=== PATIENT | male | born 1970 | race Caucasian/White ===

== ENCOUNTER 2016-06-20 15:43 | Emergency (ER) | payer MEDICAID ==
[~2016-06-20] VITALS: Ht 185.4 cm; Wt 79.5 kg
[~2016-06-20 15:43] MED LIST: IBUP800T23 PO; RANI300T PO
[2016-06-20 15:45] VITALS: BP 165/91; PULSE 74; RESP 20; TEMP 98; O2SAT 98
--- NOTE | 2016-06-20 16:15 | PD ---
HPI Chief Complaint: Injury Time Seen by Provider: 16:14 Travel History International Travel<30 days: No Contact w/Intl Traveler<30days: No Traveled to known affect area: No History of Present Illness HPI 46-year-old male presents to the emergency Department with complaint of left wrist pain since Monday after falling and catching himself with his left hand. Reports paresthesias to the fifth, fourth, and third fingers that comes and goes. Reports decreased range of motion at the wrist. 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 Pain is aggravated with movement of the fifth and fourth fingers; and movement of the wrist. Has tried ice, heat, ibuprofen, and Tylenol with minimal relief of pain. Denies fever, chills, nausea, vomiting. Reports allergies to the tetanus vaccination. Denies significant past medical history. No other modifying factors or associated signs and symptoms. PFSH Past Medical History Medical History: Denies Significant Hx Past Surgical History Genitourinary Surgery: Yes (HERNIA) Social History Alcohol Use: Yes (socially) Tobacco Use: Yes (1 PPD) Substance Use: Yes (MARIJUANA) Allergies-Medications (Allergen,Severity, Reaction): Coded Allergies: Tetanus Toxoid (Verified Allergy, Severe, Hives, 06/20/16) Reported Meds & Prescriptions Reported Meds & Active Scripts Active Ibuprofen 800 Mg Tab 800 Mg PO Q6HR PRN Review of Systems Except as stated in HPI: all other systems reviewed are Neg Physical Exam Narrative GENERAL: Well-nourished, well-developed male patient, in no acute distress SKIN: Warm and dry. HEAD: Atraumatic. Normocephalic. EYES: Pupils equal and round. No scleral icterus. No injection or drainage. ENT: Mucosa pink and moist. Airway patent. NECK: Trachea midline. CARDIOVASCULAR: Regular rate. RESPIRATORY: No accessory muscle use. GASTROINTESTINAL: Flat. MUSCULOSKELETAL: Left wrist with tenderness on palpation to the dorsal aspect; no erythema ; no edema; with decreased range of motion secondary to pain; no obvious deformity. hand with full range of motion at all joints. Left upper extremity is supple and non-tense with 2+ radial pulse and sensory intact. No obvious deformities. No clubbing. No cyanosis. NEUROLOGICAL: Awake and alert. Oriented 3. No obvious cranial nerve deficits. Motor grossly within normal limits. Normal speech. PSYCHIATRIC: Appropriate mood and affect; insight and judgment normal. Data Data Last Documented VS Vital Signs Date Time Temp Pulse Resp B/P Pulse Ox O2 Delivery O2 Flow Rate FiO2 06/20/16 15:45 98.0 74 20 165/91 98 Room Air Orders Wrist, Complete ([id number]) (06/20/16 16:20) Ibuprofen (Motrin) (06/20/16 16:30) Splint Or Brace Apply/Monitor (06/20/16 17:20) MDM Medical Decision Making Medical Screen Exam Complete: Yes Emergency Medical Condition: Yes Medical Record Reviewed: Yes Differential Diagnosis Wrist fracture, wrist dislocation, wrist sprain Narrative Course 46-year-old male with left wrist injury after a fall on Monday. Left upper extort is supple and nontender. 2+ radial pulses and sensory intact without erythema or edema. Ibuprofen administered in the ER. Left wrist x-ray ordered. 1719: Left wrist x-ray with no acute findings. Velcro wrist splint applied for support. Instructed patient to follow-up outpatient if symptoms persist greater than 10 days and he verbalized understanding and agreement. Patient is medically cleared and stable for discharge. Discussed reasons to return to the emergency department. Instructed patient to follow up with primary care provider. Patient agrees with treatment plan. The patients vital signs are stable and the patient is stable for outpatient follow-up and treatment. Patient discharged home, stable and in no acute distress. Diagnosis Primary Impression: Left wrist sprain Qualified Code: S63.502A - Left wrist sprain, initial encounter Referrals: Primary Care Physician Patient Instructions: General Instructions, Wrist Sprain (ED) Additional Instructions: Tylenol or ibuprofen as directed and as needed to reduce pain Rest, ice, compress, and elevate extremity to decrease pain and inflammation Dyllan wrap for support Wrist Splint for support Avoid aggravating activity; increase activity as tolerated Follow-up with primary care provider Return to the emergency department immediately with worsening symptoms Med/Other Pt SpecificInfo: Prescription(s) given Scripts Ibuprofen 800 Mg [id number] Mg PO Q6HR PRN (PAIN) #30 TAB Ref 0 Prov:Dejah Lazaro 06/20/16 Disposition: 01 DISCHARGE HOME Condition: Stable Dejah Lazaro Jun 20, 2016 16:14
[2016-06-20] MEDS ORDERED: IBUP800T23 PO (16:25)
[2016-06-20] MEDS ORDERED: IBUPROFEN 800 MG TAB PO ONE (16:30)
--- NOTE | 2016-06-20 16:38 | RADRPT ---
EXAM DATE/TIME: 06/20/2016 16:34 [facility] COMPARISON: No previous studies available for comparison. INDICATIONS : Left wrist pain, fell MEDICAL HISTORY : None. SURGICAL HISTORY : None. ENCOUNTER: Initial ACUITY: 4 - 6 days PAIN SCORE: 10/10 LOCATION: Left Wrist FINDINGS: Three view examination of the left wrist demonstrates no soft tissue swelling, dislocation, or fractu re. The carpal bones are in normal alignment. The joint spaces are maintained. Bony mineralization is normal. CONCLUSION: Negative for fracture or dislocation. Followup in 7-10 days is suggested if symptoms persist. Christophe Villaseñor MD FACR on June 20, 2016 at 16:36 Board Certified Radiologist. This report was verified electronically.
== END 2016-06-20 17:44 | disposition home or self-care (01) ==
LOC: NEPB 15:43
DX: S63.502A Unspecified sprain of left wrist, initial encounter (principal); F17.200 Nicotine dependence, unspecified, uncomplicated; W19.XXXA Unspecified fall, initial encounter
CPT/HCPCS: 73110; 99283; L3908

== ENCOUNTER 2016-09-27 18:52 | Emergency (ER) | payer SELFPAY ==
[~2016-09-27] VITALS: Ht 180.3 cm; Wt 78.0 kg
[~2016-09-27 18:52] MED LIST changes: -RANI300T PO
[2016-09-27 18:54] VITALS: BP 118/70; PULSE 76; RESP 17; TEMP 97.9; O2SAT 100
[2016-09-27] MEDS ORDERED: oxyCODONE/ACETAMINOPHEN 5 MG/325 MG TAB PO ONE (21:00)
[2016-09-27 21:05] VITALS: BP 123/72; PULSE 64; RESP 18; O2SAT 96
--- NOTE | 2016-09-27 21:42 | RADRPT ---
EXAM DATE/TIME: 09/27/2016 21:30 [facility] COMPARISON: No previous studies available for comparison. INDICATIONS : Fall on left shoulder. MEDICAL HISTORY : None. SURGICAL HISTORY : None. ENCOUNTER: Initial ACUITY: 1 day PAIN SCORE: 0/10 LOCATION: Left shoulder FINDINGS: Multiple view examination of the left shoulder demonstrates no evidence of fracture or dislocation. The glenohumeral and acromioclavicular joints are maintained. There is normal range of motion betwee n internal and external rotation. Bony mineralization is normal. CONCLUSION: No acute fracture. Richie Govea MD on September 27, 2016 at 21:40 Board Certified Radiologist. This report was verified electronically.
[2016-09-27] MEDS ORDERED: CYCL1TAB29 PO (21:44)
--- NOTE | 2016-09-27 21:44 | PD ---
HPI Chief Complaint: Injury Time Seen by Provider: 20:59 Travel History International Travel<30 days: No Contact w/Intl Traveler<30days: No Traveled to known affect area: No History of Present Illness HPI Patient is a 46-year-old male presents emergency department 2 days after falling off of a bobcat onto his left shoulder. Patient states that he felt a pop initially but was able to range it but the pain is gradually gotten worse. He states the pain is primarily over the clavicle and the superior most x-rays of his shoulder. He states he is able to range it but on abduction he does have significant pain. Denies any head neck back chest abdomen pelvis or other extremity injury. Denies any loss of consciousness. He's been taking ibuprofen at home with some relief. PFSH Past Medical History Medical History: Denies Significant Hx Diminished Hearing: No Tetanus Vaccination: > 5 Years Influenza Vaccination: No Past Surgical History Genitourinary Surgery: Yes (HERNIA) Social History Alcohol Use: Yes (socially) Tobacco Use: Yes (1 PPD) Substance Use: Yes (MARIJUANA) Allergies-Medications (Allergen,Severity, Reaction): Coded Allergies: Tetanus Toxoid (Verified Allergy, Severe, Hives, 09/27/16) Reported Meds & Prescriptions Reported Meds & Active Scripts Active Flexeril (Cyclobenzaprine HCl) 10 Mg Tab 10 Mg PO TID Review of Systems Except as stated in HPI: all other systems reviewed are Neg Physical Exam Narrative GENERAL: Well-nourished, well-developed patient. No apparent distress SKIN: Focused skin assessment warm/dry. HEAD: Normocephalic. EYES: No scleral icterus. No injection or drainage. NECK: Supple, trachea midline. No JVD or lymphadenopathy. CARDIOVASCULAR: Regular rate and rhythm without murmurs, gallops, or rubs. RESPIRATORY: Breath sounds equal bilaterally. No accessory muscle use. GASTROINTESTINAL: Abdomen soft, non-tender, nondistended. MUSCULOSKELETAL: No cyanosis, or edema. Pulses motor and sensory are intact distally in all 4 extremities. Compartments are soft. Left upper extremity: There is some tenderness on the clavicle particularly near the acromioclavicular joint. No scapular tenderness, there is some minimal proximal humerus tenderness. The patient is able to range his shoulder past 90 and abduction. Forward flexion, retroflexion and internal and external rotation are minimally tender but intact. No tenderness of the elbow wrist or hand. Full nontender range of motion's at the distal joints. Right upper extremity: No tenderness at the wrist shoulder elbow or hand. Atraumatic. BACK: Nontender without obvious deformity. No CVA tenderness. Data Data Last Documented VS Vital Signs Date Time Temp Pulse Resp B/P Pulse Ox O2 Delivery O2 Flow Rate FiO2 09/27/16 21:05 64 18 123/72 96 Room Air 09/27/16 18:54 97.9 Orders Shoulder, Complete (>2vws) (09/27/16 ) Oxycodone-Acetamin 5-325 Mg (Percocet (09/27/16 21:00) MDM Medical Decision Making Medical Screen Exam Complete: Yes Emergency Medical Condition: Yes Differential Diagnosis Strain, sprain, fracture. Narrative Course Patient roomed in the emergency department, does have some bony tenderness but able to range with minimal pain. Last 24 hours Impressions Shoulder X-Ray 09/27/16 0000 Signed Impressions: Service Date/Time: Tuesday, September 27, 2016 21:30 - CONCLUSION: No acute fracture. Richie Govea MD Discussed with the patient symptomatic management need follow-up with a primary care physician as well as patient assistance program. He is stable for discharge at this time. Diagnosis Primary Impression: Left shoulder strain Qualified Code: S46.912A - Left shoulder strain, initial encounter Med/Other Pt SpecificInfo: Prescription(s) given Scripts Cyclobenzaprine (Flexeril)10 Mg Tab10 Mg PO TID #30 TAB Ref 0 Prov:Richard Buchanan MD 09/27/16 Disposition: 01 DISCHARGE HOME Condition: Stable Richard Buchanan MD Sep 27, 2016 21:44
== END 2016-09-27 22:08 | disposition home or self-care (01) ==
LOC: NEPD 18:52
DX: S46.912A Strain of unspecified muscle, fascia and tendon at shoulder and upper arm level, left arm, initial encounter (principal); V87.8XXA Person injured in other specified noncollision transport accidents involving motor vehicle (traffic), initial encounter
CPT/HCPCS: 73030; 99283

== ENCOUNTER 2017-01-04 15:53 | Emergency (ER) | payer SELFPAY ==
[~2017-01-04] VITALS: Ht 185.4 cm; Wt 80.0 kg
[~2017-01-04 15:53] MED LIST changes: +CYCL1TAB29 PO; -IBUP800T23 PO
[2017-01-04 16:00] VITALS: BP 109/61; PULSE 75; RESP 16; TEMP 98; O2SAT 97
--- NOTE | 2017-01-04 16:19 | PD ---
HPI Chief Complaint: Oral / Dental Pain or Problem Time Seen by Provider: 16:16 Travel History International Travel<30 days: No Contact w/Intl Traveler<30days: No Traveled to known affect area: No History of Present Illness HPI 46-year-old male presents to our with pain and swelling under the #18 tooth lower jaw. Patient states it cracked and he lost a piece proximal to 4 days ago. He is Having progressively worse pain and localized swelling over the past 4 days. He's been using ibuprofen, Aleve, and Anusol. Into the local dental resources and was told to come here, while they try to get him in for an appointment. Patient denies fever, chills, or difficulty swallowing. His pain is an 8/10. It is worse with hot and cold exposure. He has no medication allergies other than to tetanus toxoid. [facility] Past Medical History Diminished Hearing: No Tetanus Vaccination: Unknown Past Surgical History Genitourinary Surgery: Yes (HERNIA) Social History Alcohol Use: Yes (socially) Tobacco Use: Yes (1 PPD) Substance Use: Yes (MARIJUANA) Allergies-Medications (Allergen,Severity, Reaction): Coded Allergies: Tetanus Toxoid (Verified Allergy, Severe, Hives, 01/04/17) Reported Meds & Prescriptions Reported Meds & Active Scripts Active No Active Prescriptions or Reported Medications Review of Systems Except as stated in HPI: all other systems reviewed are Neg General / Constitutional: No: Fever Eyes: No: Visual changes HENT: Positive: Dental Difficulties, No: Headaches, Sore Throat, Rhinitis, Rhinorrhea, Congestion, Nosebleed, Neck Stiffness, Neck Pain, Earache Cardiovascular: No: Chest Pain or Discomfort Respiratory: No: Shortness of Breath Gastrointestinal: No: Abdominal Pain Genitourinary: No: Dysuria Musculoskeletal: No: Pain Skin: No Rash Neurologic: No: Weakness Psychiatric: No: Depression Endocrine: No: Polydipsia Hematologic/Lymphatic: No: Easy Bruising Physical Exam Narrative GENERAL: Patient appears in mild to moderate distress SKIN: Warm and dry. Normal color. Normal turgor. No erythema. HEAD: Atraumatic. Normocephalic. EYES: Pupils equal and round. No scleral icterus. No injection or drainage. ENT: No nasal bleeding or discharge. Mucous membranes pink and moist. TMs are clear bilaterally. Patient does indeed have a broken #18 tooth with localized swelling and tenderness. No obvious abscesses noted this time. NECK: Trachea midline. Supple nontender without significant lymphadenopathy. CARDIOVASCULAR: Regular rate and rhythm. RESPIRATORY: No accessory muscle use. Clear to auscultation. Breath sounds equal bilaterally. GASTROINTESTINAL: Abdomen soft, non-tender, nondistended. Hepatic and splenic margins not palpable. MUSCULOSKELETAL: Extremities without clubbing, cyanosis, or edema. No obvious deformities. NEUROLOGICAL: Awake and alert. No obvious cranial nerve deficits. Motor grossly within normal limits. Five out of 5 muscle strength in the arms and legs. Normal speech. PSYCHIATRIC: Appropriate mood and affect; insight and judgment normal. Data Data Last Documented VS Vital Signs Date Time Temp Pulse Resp B/P Pulse Ox O2 Delivery O2 Flow Rate FiO2 01/04/17 16:00 98.0 75 16 109/61 97 Orders Ketorolac Inj (Toradol Inj) (01/04/17 16:30) [id number] [id number] (Magic Mouthwash Adul (01/04/17 16:30) Penicillin V Potassium (Veetids) (01/04/17 16:30) MDM Medical Decision Making Medical Screen Exam Complete: Yes Emergency Medical Condition: Yes Differential Diagnosis Broken tooth. Dental pain. Dental caries. Dental abscess. Narrative Course Patient given Toradol 60 mg IM. Patient is given Magic mouthwash with improved pain. Patient is given penicillin 500 mg by mouth now. Patient to be continued on ibuprofen 800 mg 3 times daily with food #30. Patient also given Penicillin VK 500 mg 4 times a day 10 days. Patient also given Magic mouthwash as directed 120 miles with 1 refill. Patient follow up with dental resources as discussed. Diagnosis Primary Impression: Broken tooth Qualified Code: S02.5XXB - Open fracture of tooth, initial encounter Additional Impression: Dental abscess Referrals: Dentist Patient Instructions: Dental Abscess (ED), General Instructions Additional Instructions: Patient given Toradol 60 mg IM. Patient is given Magic mouthwash with improved pain. Patient is given penicillin 500 mg by mouth now. Patient to be continued on ibuprofen 800 mg 3 times daily with food #30. Patient also given Penicillin VK 500 mg 4 times a day 10 days. Patient also given Magic mouthwash as directed 120 miles with 1 refill. Patient follow up with dental resources as discussed. Med/Other Pt SpecificInfo: Prescription(s) given Scripts No Active Prescriptions or Reported Meds Disposition: 01 DISCHARGE HOME Condition: Rd Omer Jan 04, 2017 16:19
[2017-01-04] MEDS ORDERED: IBUP800T23 PO (16:27)
[2017-01-04] MEDS ORDERED: PENI500T PO (16:27)
[2017-01-04] MEDS ORDERED: MAGICADU2 SWISH-SWAL (16:27)
[2017-01-04] MEDS ORDERED: PENICILLIN V POTASSIUM 500 MG TAB PO ONE (16:30)
[2017-01-04] MEDS ORDERED: NYSTAT/DIPHENHY/LIDO MOUTHWASH (Adult) 120ML SWISH-SPIT ONE (16:30)
[2017-01-04] MEDS ORDERED: KETOROLAC TROMETHAMINE 60 MG/2 ML (IM) VIAL IM ONE (16:30)
== END 2017-01-04 16:40 | disposition home or self-care (01) ==
LOC: PHEFT 15:53
DX: S02.5XXB Fracture of tooth (traumatic), initial encounter for open fracture (principal); K04.7 Periapical abscess without sinus; F17.210 Nicotine dependence, cigarettes, uncomplicated; F12.90 Cannabis use, unspecified, uncomplicated; X58.XXXA Exposure to other specified factors, initial encounter
CPT/HCPCS: 96372; 99284; J1885

== ENCOUNTER 2017-04-07 19:59 | Emergency (ER) | payer OTHER ==
[~2017-04-07] VITALS: Ht 185.4 cm; Wt 80.0 kg
[~2017-04-07 19:59] MED LIST changes: -CYCL1TAB29 PO; +IBUP1TAB7 PO; +MAGICADU2 SWISH-SWAL; +PENI500T PO
[2017-04-07 21:03] VITALS: BP 130/72; PULSE 107; RESP 16; TEMP 98.2; O2SAT 97
--- NOTE | 2017-04-07 21:29 | PD ---
HPI Chief Complaint: Psychiatric Symptoms Time Seen by Provider: 21:23 Travel History International Travel<30 days: No Contact w/Intl Traveler<30days: No Traveled to known affect area: No History of Present Illness HPI 46-year-old male brought in by PD under Ambriz act. According to the Ambriz act the [place] was [place] to [place] and commit [place]. Patient admits to drinking alcohol today. He denies any illicit drugs. He is currently denying suicidal ideation. He denies any physical complaints. PFSH Past Medical History Diminished Hearing: No Psychiatric: Yes (PTSD) Influenza Vaccination: No Past Surgical History Genitourinary Surgery: Yes (HERNIA) Social History Alcohol Use: Yes (socially) Tobacco Use: Yes (1 PPD) Substance Use: Yes (MARIJUANA) Allergies-Medications (Allergen,Severity, Reaction): Coded Allergies: tetanus toxoid, adsorbed (Unverified Allergy, Severe, Hives, 01/17/17) carbamazepine (Verified Allergy, Unknown, 04/07/17) Reported Meds & Prescriptions Reported Meds & Active Scripts Active No Active Prescriptions or Reported Medications Review of Systems Except as stated in HPI: all other systems reviewed are Neg Physical Exam Narrative GENERAL: Well-developed, well-nourished, comfortable, no apparent distress. SKIN: Focused skin assessment warm/dry. HEAD: Atraumatic. Normocephalic. EYES: Pupils equal and round. No scleral icterus. No injection or drainage. ENT: Mucous membranes pink and moist. NECK: Trachea midline. No JVD. CARDIOVASCULAR: Regular rate and rhythm. No murmur appreciated. RESPIRATORY: No accessory muscle use. Clear to auscultation. Breath sounds equal bilaterally. GASTROINTESTINAL: Abdomen soft, non-tender, nondistended. MUSCULOSKELETAL: No obvious deformities. No clubbing. No cyanosis. No edema. NEUROLOGICAL: Awake and alert. No obvious cranial nerve deficits. Motor grossly within normal limits. Normal speech. PSYCHIATRIC: Appropriate mood and affect; insight and judgment normal. Data Data Last Documented VS Vital Signs Date Time Temp Pulse Resp B/P (MAP) Pulse Ox O2 Delivery O2 Flow Rate FiO2 04/07/17 21:03 98.2 107 16 130/72 (91) 97 Orders Orders Complete Blood Count With Diff (04/07/17 21:23) Comprehensive Metabolic Panel (04/07/17 21:23) Psych Screen (04/07/17 21:23) Drug Screen, Random Urine (04/07/17 21:23) Alcohol (Ethanol) (04/07/17 21:23) Salicylates (Aspirin) (04/07/17 21:23) Tylenol (Acetaminophen) (04/07/17 21:23) Labs Laboratory Tests Test 04/07/17 21:25 04/07/17 21:40 White Blood Count 13.4 TH/MM3 Red Blood Count 4.43 MIL/MM3 Hemoglobin 14.1 GM/DL Hematocrit 41.4 % Mean Corpuscular Volume 93.5 FL Mean Corpuscular Hemoglobin 31.9 PG Mean Corpuscular Hemoglobin Concent 34.1 % Red Cell Distribution Width 12.1 % Platelet Count 232 TH/MM3 Mean Platelet Volume 8.3 FL Neutrophils (%) (Auto) 67.7 % Lymphocytes (%) (Auto) 23.8 % Monocytes (%) (Auto) 8.0 % Eosinophils (%) (Auto) 0.3 % Basophils (%) (Auto) 0.2 % Neutrophils # (Auto) 9.1 TH/MM3 Lymphocytes # (Auto) 3.2 TH/MM3 Monocytes # (Auto) 1.1 TH/MM3 Eosinophils # (Auto) 0.0 TH/MM3 Basophils # (Auto) 0.0 TH/MM3 CBC Comment DIFF FINAL Differential Comment Blood Urea Nitrogen 7 MG/DL Creatinine 1.22 MG/DL Random Glucose 76 MG/DL Total Protein 7.6 GM/DL Albumin 4.0 GM/DL Calcium Level 9.0 MG/DL Alkaline Phosphatase 80 U/L Aspartate Amino Transf (AST/SGOT) 12 U/L Alanine Aminotransferase (ALT/SGPT) 14 U/L Total Bilirubin 0.4 MG/DL Sodium Level 139 MEQ/L Potassium Level 4.0 MEQ/L Chloride Level 103 MEQ/L Carbon Dioxide Level 24.5 MEQ/L Anion Gap 12 MEQ/L Estimat Glomerular Filtration Rate 64 ML/MIN Salicylates Level 3.9 MG/DL Acetaminophen Level LESS THAN 2.0 MCG/ML Ethyl Alcohol Level 102 MG/DL MDM Medical Decision Making Medical Screen Exam Complete: Yes Emergency Medical Condition: Yes Differential Diagnosis Alcohol intoxication, drug induced mood disorder, depression, suicidal ideation Narrative Course Vital signs reviewed. Basic labs reviewed. Alcohol level is 102. The patient is medically cleared for psychiatric evaluation and disposition by them. Diagnosis Primary Impression: Alcohol-induced mood disorder Scripts No Active Prescriptions or Reported Meds Viral Kolb MD Apr 07, 2017 21:29
[2017-04-07 21:54] LABS: AUTOMATED NEUTROPHIL # 9.1 TH/MM3 (1.8-7.7); BASOPHIL % 0.2 % (0.0-2.0); EOSINOPHIL % 0.3 % (0.0-4.0); HEMATOCRIT 41.4 % (39.0-51.0); HEMO FLAGS DIFF FINAL; LYMPH % 23.8 % (9.0-44.0); LYMPHOCYTE # 3.2 TH/MM3 (1.0-4.8); MEAN CELL VOLUME 93.5 FL (80.0-100.0); MEAN CORPUSCULAR HEMOGLOBIN 31.9 PG (27.0-34.0); MEAN CORPUSCULAR HGB CONC 34.1 % (32.0-36.0); NEUT % 67.7 % (16.0-70.0); PLATELET COUNT 232 TH/MM3 (150-450); RED BLOOD COUNT 4.43 MIL/MM3 (4.50-5.90); RED CELL DISTRIBUTION WIDTH 12.1 % (11.6-17.2); WHITE BLOOD COUNT 13.4 TH/MM3 (4.0-11.0)
[2017-04-07 22:14] LABS: ALT (GPT) 14 U/L (12-78); ANION GAP 12 MEQ/L (5-15); AST (GOT) 12 U/L (15-37); BICARBONATE 24.5 MEQ/L (21.0-32.0); BLOOD UREA NITROGEN 7 MG/DL (7-18); CHLORIDE 103 MEQ/L (98-107); GLOMERULAR FILTRATION RATE 64 ML/MIN (>89); SODIUM (NA) 139 MEQ/L (136-145)
[2017-04-07 22:16] LABS: ALKALINE PHOSPHATASE 80 U/L (45-117); TOTAL BILIRUBIN ADULT 0.4 MG/DL (0.2-1.0)
[2017-04-07 22:17] LABS: ALCOHOL 102 MG/DL (0-5)
[2017-04-07 22:19] LABS: ACETAMINOPHEN LESS THAN 2.0 MCG/ML (10.0-30.0)
[2017-04-08 06:45] VITALS: BP 137/90; PULSE 89; RESP 18; O2SAT 98
--- NOTE | 2017-04-08 14:23 | PD ---
Physical Exam Date Seen by Provider: Apr 08, 2017 Time Seen by Provider: 14:20 Data Data Last Documented VS Vital Signs Date Time Temp Pulse Resp B/P (MAP) Pulse Ox O2 Delivery O2 Flow Rate FiO2 04/08/17 06:45 89 18 137/90 (106) 98 04/07/17 21:03 98.2 Orders Orders Complete Blood Count With Diff (04/07/17 21:23) Comprehensive Metabolic Panel (04/07/17 21:23) Psych Screen (04/07/17 21:23) Drug Screen, Random Urine (04/07/17 21:23) Alcohol (Ethanol) (04/07/17 21:23) Salicylates (Aspirin) (04/07/17 21:23) Tylenol (Acetaminophen) (04/07/17 21:23) Diet Regular Basic (04/08/17 Breakfast) Diet Regular Basic (04/08/17 Lunch) Ed Discharge Order (04/08/17 14:20) Labs Laboratory Tests Test 04/07/17 21:25 04/07/17 21:40 White Blood Count 13.4 TH/MM3 Red Blood Count 4.43 MIL/MM3 Hemoglobin 14.1 GM/DL Hematocrit 41.4 % Mean Corpuscular Volume 93.5 FL Mean Corpuscular Hemoglobin 31.9 PG Mean Corpuscular Hemoglobin Concent 34.1 % Red Cell Distribution Width 12.1 % Platelet Count 232 TH/MM3 Mean Platelet Volume 8.3 FL Neutrophils (%) (Auto) 67.7 % Lymphocytes (%) (Auto) 23.8 % Monocytes (%) (Auto) 8.0 % Eosinophils (%) (Auto) 0.3 % Basophils (%) (Auto) 0.2 % Neutrophils # (Auto) 9.1 TH/MM3 Lymphocytes # (Auto) 3.2 TH/MM3 Monocytes # (Auto) 1.1 TH/MM3 Eosinophils # (Auto) 0.0 TH/MM3 Basophils # (Auto) 0.0 TH/MM3 CBC Comment DIFF FINAL Differential Comment Blood Urea Nitrogen 7 MG/DL Creatinine 1.22 MG/DL Random Glucose 76 MG/DL Total Protein 7.6 GM/DL Albumin 4.0 GM/DL Calcium Level 9.0 MG/DL Alkaline Phosphatase 80 U/L Aspartate Amino Transf (AST/SGOT) 12 U/L Alanine Aminotransferase (ALT/SGPT) 14 U/L Total Bilirubin 0.4 MG/DL Sodium Level 139 MEQ/L Potassium Level 4.0 MEQ/L Chloride Level 103 MEQ/L Carbon Dioxide Level 24.5 MEQ/L Anion Gap 12 MEQ/L Estimat Glomerular Filtration Rate 64 ML/MIN Salicylates Level 3.9 MG/DL Acetaminophen Level LESS THAN 2.0 MCG/ML Ethyl Alcohol Level 102 MG/DL Urine Opiates Screen NEG Urine Barbiturates Screen NEG Urine Amphetamines Screen NEG Urine Benzodiazepines Screen NEG Urine Cocaine Screen NEG Urine Cannabinoids Screen POS MDM Medical Record Reviewed: Yes Supervised Visit with LUIS ANTONIO: No Narrative Course 46-year-old male presented previously to the emergency room under Ambriz act after Police Department found him trying to jump off a bridge. Patient denies this; denies suicidal or homicidal ideation at this time. He was seen and evaluated by the psychiatrist and the Ambriz act was lifted; patient is not felt to be a threat to himself or others at this time. He was intoxicated with alcohol. Patient states he feels better and would like to go home. 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 He is stable for discharge and outpatient follow-up. Diagnosis Primary Impression: Alcohol-induced mood disorder Referrals: Primary Care Physician Additional Instruction: Follow-up per psychiatrist's recommendations. Scripts No Active Prescriptions or Reported Meds Disposition: 01 DISCHARGE HOME Condition: Stable Renae Del Castillo Apr 08, 2017 14:23
--- NOTE | 2017-04-08 18:53 | PD.PSY.CON ---
Provisional Diagnosis Admission Date [place]. Alcohol-induced mood disorder [place] II. Antisocial personality disorder [place] III. None [place] IV. History of incarceration, [place] V. 50 History of Present Illness Service Psychiatry Consult Requested By Emergency department Reason for Consult [place] act by police department Primary Care Physician Unknown HPI Patient is a 46-year-old man, with 2 children, employed domiciled and children, past psychiatric history of ADHD as a child, no previous psychiatric admissions, no previous suicide attempts or self-interest behavior, history of incarcerations, who was brought into the ER under [place] act by police department due to suicidal ideations in the context of acute alcohol intoxication. As per [place] act [place] stating suicide ideations which was brought to the hospital for evaluation. Patient was found in the emergency room sitting on hospital bed, cooperative today with interview. Patient states that Is from his for the past 6 months was also having a relationship with a girlfriend which ended a couple of days ago and was having some relationship discord between the girlfriend and him. He states that he was recently sent texts from hers girlfriend stated that she was HIV positive which upset him and had arguments with this person. Patient reports that a couple of days later he was notified that this department was activated by patient's ex-girlfriend as she had reported to them that patient was suicidal which she believes was done maliciously to get him into trouble. Patient states that after his work he went to have some drinks which she states that that too often but drank that day and [place] police attempted to stop him and he reacted by running mentioning that his criminal history gave to his mistrust to law enforcement. Patient states that he was confused as to why he was being stopped it was later told that he had received notice of concern by someone that he was suicidal which she denies. Patient states that he has never had any previous suicide attempts nor has he ever had a suicide ideations. He reports that he currently has 2 children, employed, never think of ending his life. Patient believes that this was done by his ex-girlfriend after the event the relationship to "get back at me". Patient admits to having had drank more than he is used to but states that he was never had the intention of ending his life. Patient at this time denies SI, HI, AVH or delusions. Collateral information obtained by patient's over the phone which she states that having any acute concerns for his safety and stating that he has never had any suicide attempt in the past. Patient states that she feels safe having him home at his supportive with any services that are recommended for him at this time. She states that she is willing to pick him up and bring him home. She also mentions that tomorrow is her daughter's birthday which patient also mentioned during interview. Past Family Social History Coded Allergies: tetanus toxoid, adsorbed (Unverified Allergy, Severe, Hives, 01/17/17) carbamazepine (Verified Allergy, Unknown, 04/07/17) Discontinued Scripts Penicillin V Potassium (Penicillin V Potassium) 500 Mg Tab, 500 MG PO Q6H for Infection for 10 Days, TAB Prov:Minal Park DO 01/04/17 Xylsncyo-Abvrmbajihtcnus-Rudzgjjkn Liq (Magic Mouthwash Adult Liq) 120 Ml Susp, 5 ML SWISH-SWAL ACHS for Mouth sores, #120 ML 1 Refill Each 5 mL contains: Nystatin 200,000 units, Diphenhydramine 4.25 mg, Viscous Lidocaine 10 mg, Cano syrup 0.8 mL Prov:Minal Park DO 01/04/17 Ibuprofen (Ibuprofen) 800 Mg Tab, 800 MG PO Q8H Y for Pain/Inflammation, #30 TAB Prov:Minal Park DO 01/04/17 Physical Exam Vital Signs Vital Signs Date Time Temp Pulse Resp B/P (MAP) Pulse Ox O2 Delivery O2 Flow Rate FiO2 04/08/17 15:00 04/08/17 06:45 89 18 98 04/07/17 21:03 98.2 Lab Results Test 04/07/17 21:25 04/07/17 21:40 White Blood Count 13.4 TH/MM3 Red Blood Count 4.43 MIL/MM3 Hemoglobin 14.1 GM/DL Hematocrit 41.4 % Mean Corpuscular Volume 93.5 FL Mean Corpuscular Hemoglobin 31.9 PG Mean Corpuscular Hemoglobin Concent 34.1 % Red Cell Distribution Width 12.1 % Platelet Count 232 TH/MM3 Mean Platelet Volume 8.3 FL Neutrophils (%) (Auto) 67.7 % Lymphocytes (%) (Auto) 23.8 % Monocytes (%) (Auto) 8.0 % Eosinophils (%) (Auto) 0.3 % Basophils (%) (Auto) 0.2 % Neutrophils # (Auto) 9.1 TH/MM3 Lymphocytes # (Auto) 3.2 TH/MM3 Monocytes # (Auto) 1.1 TH/MM3 Eosinophils # (Auto) 0.0 TH/MM3 Basophils # (Auto) 0.0 TH/MM3 CBC Comment DIFF FINAL Differential Comment Blood Urea Nitrogen 7 MG/DL Creatinine 1.22 MG/DL Random Glucose 76 MG/DL Total Protein 7.6 GM/DL Albumin 4.0 GM/DL Calcium Level 9.0 MG/DL Alkaline Phosphatase 80 U/L Aspartate Amino Transf (AST/SGOT) 12 U/L Alanine Aminotransferase (ALT/SGPT) 14 U/L Total Bilirubin 0.4 MG/DL Sodium Level 139 MEQ/L Potassium Level 4.0 MEQ/L Chloride Level 103 MEQ/L Carbon Dioxide Level 24.5 MEQ/L Anion Gap 12 MEQ/L Estimat Glomerular Filtration Rate 64 ML/MIN Salicylates Level 3.9 MG/DL Acetaminophen Level LESS THAN 2.0 MCG/ML Ethyl Alcohol Level 102 MG/DL Urine Opiates Screen NEG Urine Barbiturates Screen NEG Urine Amphetamines Screen NEG Urine Benzodiazepines Screen NEG Urine Cocaine Screen NEG Urine Cannabinoids Screen POS Mental Status Examination Appearance: Appropriate Consciousness: Alert Orientation: Person, Place, Date/Time Motor Activity: Normal gait Speech: Unremarkable Language: Adequate Fund of Knowledge: Adequate Attention and Concentration: Adequate Memory: Unremarkable Mood: Good Affect: Appropriate Thought Process & Associations: Intact, Goal directed, Linear Thought Content: Appropriate Hallucination Type: None Delusion Type: None Suicidal Ideation: No Suicidal Plan: No Homicidal Ideation: No Homicidal Plan: No Homicidal Intention: No Insight: Fair Judgment: Adequate Assessment & Plan Problem List: (1) Alcohol-induced mood disorder ICD Codes: F10.94 - Alcohol use, unspecified with alcohol-induced mood disorder Status: Acute Assessment & Plan Patient is a 46-year-old man who carries a diagnosis of ADHD as a child, no previous psychiatric hospitalizations no previous suicide of up and his behavior, history of incarceration was brought in to the ED under [place] act by police with allegedly concern for suicide ideations in the context of recent alcohol intoxication. Patient is observed on the unit, not noted to endorse any depressive or suicidal ideations. Patient denies any mood or psychotic symptoms at this time. Patient future oriented, reports wanting to live for his family and his job, no history of previous suicide attempts and has appropriate social support by his and children. Patient at this time not currently a danger to self or others and psychiatrically cleared for discharge. [place] act lifted. Richie Richey MD Apr 08, 2017 18:52
== END 2017-04-08 15:05 | disposition home or self-care (01) ==
LOC: NEPD 19:59 → NEPJ 04-08 15:05
DX: F10.94 Alcohol use, unspecified with alcohol-induced mood disorder (principal); Y90.5 Blood alcohol level of 100-119 mg/100 ml; F43.10 Post-traumatic stress disorder, unspecified; F90.9 Attention-deficit hyperactivity disorder, unspecified type; F17.290 Nicotine dependence, other tobacco product, uncomplicated; F12.90 Cannabis use, unspecified, uncomplicated
CPT/HCPCS: 80053; 80307; 85025; 99283